=== PATIENT | female | born 1995 | race Caucasian/White ===

== ENCOUNTER 2018-09-08 14:19 | Emergency (ER) | payer BC, OTHER ==
[~2018-09-08] VITALS: Ht 170.2 cm; Wt 58.7 kg
[2018-09-08 15:15] LABS: BASOPHILS # (AUTO) 0.01 x10^3/uL (0-0.3); BASOPHILS % (AUTO) 0 % (0-1); EOSINOPHILS # (AUTO) 0.06 x10^3/uL (0-0.8); EOSINOPHILS % (AUTO) 1 % (1-7); LYMPHOCYTES % (AUTO) 20 % (22-44); MD NO; MEAN CORPUSCULAR HEMOGLOBIN 26.7 pg (27.0-34.8); MEAN CORPUSCULAR VOLUME 83.2 fL (80-100); MEAN PLATELET VOLUME 8.1 fL (7.4-10.4); MONOCYTES # (AUTO) 0.47 x10^3/uL (0-1.4); MONOCYTES % (AUTO) 5 % (2-9); NEUTROPHILS # (AUTO) 7.64 x10^3/uL (1.8-8.0); NEUTROPHILS % (AUTO) 75 % (42-75); PLATELET COUNT 332 x10^3/uL (130-400); RED BLOOD COUNT 4.82 x10^6/uL (3.82-5.3); RED CELL DISTRIBUTION WIDTH 15.4 % (9.6-15.2)
[2018-09-08 15:26] LABS: ALANINE AMINOTRANSFERASE 28 U/L (12-78); ALBUMIN 3.9 g/dL (3.4-5.0); ANION GAP 7 mmol/L (5-15); CALCIUM 8.7 mg/dL (8.5-10.1); CHLORIDE 110 mmol/L (98-107); CREATININE 0.86 mg/dL (0.55-1.02)
[2018-09-08 15:31] LABS: ALKALINE PHOSPHATASE 131 U/L (45-117); BILIRUBIN,TOTAL 0.2 mg/dL (0.2-1.0); TOTAL PROTEIN 7.9 g/dL (6.4-8.2)
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
[2018-09-08] MEDS ORDERED: MORPHINE SULFATE 4 MG/ML, 1ML IVPush PRN (16:30)
[2018-09-08] MEDS ORDERED: ONDANSETRON 2MG/ML, 2ML ONE (16:32)
[2018-09-08] MEDS ORDERED: MORPHINE SULFATE 4 MG/ML, 1ML ONE (16:32)
[2018-09-08 16:53] VITALS: BP 132/60
--- NOTE | 2018-09-08 16:54 | NUR ---
IV ESTABLISHED. PT MEDICATED PER EMAR FOR PAIN. MOTHER AT BEDSIDE. STRAIGHT CATH COMPLETED, COLLECTED AND WALKED TO LAB. PT PLACED ON 2L BY MN FOR SUPPORT WHILE IN CT
[2018-09-08] MEDS ORDERED: ONDANSETRON 2MG/ML, 2ML IVPush ONE (17:00)
[2018-09-08 17:02] LABS: MICROSCOPIC NOT IND
[2018-09-08 17:03] LABS: CULTURE INDICATED? NO
[2018-09-08] MEDS ORDERED: OMNIPAQUE 350 MG/ML, 100ML BOTTLE ONE (17:40)
--- NOTE | 2018-09-08 17:46 | NUR ---
PT SITTING UP IN [facility]. AWAKE/ALERT, SPO2 >90% ON RA. PT REPORTS IMPROVEMENT IN PAIN AND DENIES NEED FOR FURTHER PAIN MEDICATIONS
--- NOTE | 2018-09-08 18:13 | NUR ---
POC IS DC. IV DC'D. PT OFF MONITORING AND IS UP TO DRESS SELF. MOTHER REMAINS PRESENT
== END 2018-09-08 18:39 | disposition home or self-care (01) ==
LOC: ED 16:23
DX: S06.0X0A Concussion without loss of consciousness, initial encounter (principal); G89.11 Acute pain due to trauma; R07.89 Other chest pain; R10.9 Unspecified abdominal pain; F17.200 Nicotine dependence, unspecified, uncomplicated; V47.0XXA Car driver injured in collision with fixed or stationary object in nontraffic accident, initial encounter; Y93.89 Activity, other specified; Y92.89 Other specified places as the place of occurrence of the external cause; Y99.8 Other external cause status
CPT/HCPCS: 36415; 70450; 71046; 74177; 80053; 81003; 84703; 85025; 96374; 96375; 99284; J2405; Q9967